=== PATIENT | female | born 1985 | race Two or more races ===

== ENCOUNTER 2025-07-22 14:30 | Inpatient (IN) | payer MEDICAID, OTHER ==
[~2025-07-22] VITALS: Ht 160 cm; Wt 78.8 kg
--- NOTE | 2025-07-22 15:31 | ED.PDOC ---
Musculoskeletal HPI Comments 39-year-old female presents with a chief complaint of left arm swelling s/p IV methamphetamine use. Patient states that she "shoots up meth all the time" and this time chose to use her left arm. Patient states that she "did not hit" and now has redness, swelling, and 10/10 pain to the area where she attempted to use methamphetamine. Patient also reports that the area durand and her hand and fingers are numb to the touch. PMHx: IV Drug User PSHx: , Cholecystectomy, Appendectomy, HPI: Poor Historian. REVIEW OF SYSTEMS: CONSTITUTIONAL: Denies acute: fever, diaphoresis, HEAD: Denies acute: headache, photophobia Eyes: Denies acute: Double vision, vision loss, eye pain, eye discharge. EARS: Denies acute: tinnitus, hearing loss, ear discharge, ear pain, THROAT: Denies acute: sore throat, swelling, difficulty swallowing , pain with swallowing, change in voice. NECK: Denies acute: neck pain, neck swelling, stiff neck. HEART: Denies acute : chest pain, palpitations, LUNGS: Denies acute: SOB, wheezing, cough, hemoptysis ABDOMEN: Denies acute: abdominal pain, Nausea, Vomiting, diarrhea, melena , hematemesis, hematochezia SKIN: Denies acute: rash, lesions, itchiness. EXTREMITIES: Denies acute: calf pain, numbness, tingling, weakness, Denies acute: Low back pain. Neuro: Denies acute: focal neurological deficit, motor or sensory focal neurological deficit, tremors, seizure like activity, confusion, dizziness, change in mental status, loss of bowel or bladder function, cauda equina like symptoms. : Denies acute: dysuria, hematuria, flank pain, increase in urinary frequency. PSYCH: Denies acute: hallucination, suicidal ideation, homicidal ideation. FEMALE: Denies acute: abnormal vaginal bleeding, foul odor, unusual discharge. PHYSICAL EXAM: General: ----moderate----acute distress, awake and alert. Head: normocephalic, atraumatic. Neck: supple, trachea is midline, no swelling. Throat: Normal phonation. Eyes:, no erythema, no purulent discharge, no proptosis, no icterus. Heart: regular rate, regular rhythm, no significant murmur appreciated. Lungs: no apparent respiratory distress, Able to speak in full sentences. No wheezing, no rhonchi, no crackles. No stridors Clear to auscultation bilaterally. Abdomen: non tender to palpation, non distended, soft, no guarding, no rebound, + bowel sounds. Neuro: Awake, Alert, oriented to name, self, situation, follows commands GCS=15. Speech is normal. Skin: no petechia, no purpura, no cyanosis, non-pale, not jaundice. Lower extremities: --no - Pitting edema no deformity, no focal swelling, no calf TTP. Makes eye contact. moves all four extremities. Face: no apparent facial droop. Ambulating in the ED independently. Evaluation of the area of complaint: Left upper extremity distal 1/3 of forearm erythema swelling and tenderness to palpation. Patient is neurovascularly intact in the affected extremity. Motor and sensory are present. Radial pulses palpable. This is the same area where patient injected drugs yesterday. ED COURSE: DISCLAIMER: This medical document was created using an electronic medical record system with voice recognition software and computerized dictation system. Although this document has been carefully reviewed, there might still be some phonetic and typographical errors. Occasional wrong-word or "sound-alike" substitutions may have occurred due to the inherent limitations of voice recognition software. These areas are purely typographical due to imperfections of the software programs and do not reflect any compromise in the patient's medical care. Please read the chart carefully and recognize, using context, where these substitutions have occurred. Chief Complaint: Extremity Swelling Time Seen by MD: 15:22 Reviewed Notes: Medications, Allergies Allergies: Coded Allergies: NO KNOWN ALLERGIES (Unverified , 07/22/25) Information Source: Patient Mode of Arrival: Ambulatory Location: Left Past Medical History PAST MEDICAL HISTORY: Denies Surgical History: Appendectomy, Cholecystectomy, GUT SNATCHER History: Denies all GUT SNATCHER Hx Family History Family History: Reviewed,noncontributory to illness Social History Smoker: Non-Smoker Alcohol: Denies ETOH Use Drugs: Methamphetamine Lives In: Home Was a procedure done? Was a procedure done?: No Differential Diagnosis EXT Differential Diagnosis: Cellulitis, CHF, Deep Vein Thrombosis, Compartment Syndrome, Fracture, Sprain, Dislocation, Gout, DJD, Myocardial Infarction, Contusion, Strain, Rheumatoid, Septic, Neurovascular injury, Arthritis, Bursitis, Other (Leg swellingDdx include but not limited to DVT, ischemic limb, pitting edema, volume overload, CHF, cellulitis, hematoma, compartment syndrome, dependent edema, venous stasis.) X-Ray, Labs, Meds, VS Vital Signs Date Time Temp Pulse Resp B/P (MAP) Pulse Ox O2 Delivery O2 Flow Rate FiO2 07/22/25 16:48 114 18 07/22/25 16:48 98.4 114 20 107/72 (84) 95 98.4 07/22/25 14:32 98.5 110 18 103/82 98 98.5 Lab Test 07/22/25 15:32 Range/Units White Blood Count 18.0 H 4.4-10.8 10^3/uL Red Blood Count 4.75 4.0-5.20 10^6/uL Hemoglobin 14.4 12.2-16.2 g/dL Hematocrit 41.9 36.0-46.0 % Mean Corpuscular Volume 88.3 80.0-100.0 fL Mean Corpuscular Hemoglobin 30.4 28.0-32.0 pg Mean Corpuscular Hemoglobin Concent 34.4 32.0-36.0 g/dL Red Cell Distribution Width 12.6 11.8-14.3 % Platelet Count 365 140-450 10^3/uL Mean Platelet Volume 8.2 6.9-10.8 fL Neutrophils (%) (Auto) 91.0 H 37.0-80.0 % Lymphocytes (%) (Auto) 3.8 L 10.0-50.0 % Monocytes (%) (Auto) 4.5 0.0-12.0 % Eosinophils (%) (Auto) 0.4 0.0-7.0 % Basophils (%) (Auto) 0.3 0.0-2.0 % Neutrophils # (Auto) 16.3 H 1.6-8.6 10 ^3/uL Lymphocytes # (Auto) 0.7 0.4-5.4 10 ^3/uL Monocytes # (Auto) 0.8 0-1.3 10 ^3/uL Eosinophils # (Auto) 0.1 0-0.8 10 ^3/uL Basophils # (Auto) 0.1 0-0.2 10 ^3/uL Nucleated Red Blood Cells 0.0 % Sodium Level 139 136-145 mmol/L Potassium Level 3.5 3.5-5.1 mmol/L Chloride Level 105 98-107 mmol/L Carbon Dioxide Level 22 20-31 mmol/L Anion Gap 12 5-15 Blood Urea Nitrogen 12 9-23 mg/dL Creatinine 0.78 0.550-1.02 mg/dL Glomerular Filtration Rate Calc 100 >90 mL/min BUN/Creatinine Ratio 15.4 10.0-20.0 Serum Glucose 107 H 74-106 mg/dL Hemoglobin A1c 5.2 <5.7 % A1C Lactic Acid Level 1.9 0.4-2.0 mmol/L Calcium Level 9.6 8.7-10.4 mg/dL Phosphorus Level 1.6 L 2.4-5.1 mg/dL Magnesium Level 1.9 1.6-2.6 mg/dL Total Bilirubin 0.9 0.2-1.0 mg/dL Aspartate Amino Transferase (AST) 25 13-40 U/L Alanine Aminotransferase (ALT) 20 7-40 U/L Alkaline Phosphatase 131 H 46-116 U/L C-Reactive Protein High Sensitivity 0.89 <1.0 mg/dL Total Protein 7.6 5.7-8.2 g/dL Albumin 4.5 3.2-4.8 g/dL Vitamin B12 Level Pending Vitamin D 25-Hydroxy Pending Thyroid Stimulating Hormone (TSH) 1.62 0.55-4.78 uIU/mL Beta HCG, Quantitative 0.4 L 1.5-4.2 mIU/mL Plasma/Serum Blood Alcohol < 3.0 <10 mg/dL Current Medications Medications (Trade) Dose Ordered Sig/Jesús Route Start Time Stop Time Status Last Admin Vancomycin HCl 250 ml @ 250 mls/hr ONCE ONCE IV 07/22/25 15:30 07/22/25 16:29 DC 07/22/25 20:25 Piperacillin Sod/ Tazobactam Sod 100 ml @ 100 mls/hr ONCE ONCE IV 07/22/25 15:30 07/22/25 16:29 DC 07/22/25 16:58 Sodium Chloride 500 ml @ 500 mls/hr Q1H ONCE IV 07/22/25 20:45 07/22/25 21:44 DC 07/22/25 21:16 Sodium Chloride 1,000 ml @ 75 mls/hr [id number] IV 07/22/25 20:45 07/22/25 21:16 PATIENT: FIORELLA SERNA: [id number]: [id number] : 1985 LOC: ER ROOM / BED: / AGE / SEX: 39 / F ADM STATUS: REG ER SERVICE 1615 ORDERING PHYSICIAN: ABEBA MILLAN DO PROCEDURE(s): UECIR - LT UPPER EXTREMITY W CONTRAS REASON: PAIN AND SWELLING S/P METH INJECTION ORDER NUMBER(s): [id number], ACCESSION NUMBER(s): [id number] CT LEFT UPPER EXTREMITY WITH CONTRAST HISTORY: PAIN AND SWELLING S/P METH INJECTION COMPARISON: None TECHNIQUE: Multiple axial CT images of the left upper extremity were obtained with intravenous contrast. Coronal and sagittal bone and soft tissue reformations were also obtained. One or more of the following radiation dose reduction techniques were used for this examination: automated exposure control, adjustment of the mA and/or kV according to patient size, use of iterative reconstruction technique. Findings and impression: Subcutaneous edema noted along the radial aspect of the distal forearm. No sizable, loculated fluid collections are appreciated at this time. Findings may reflect cellulitis. If there is persistent concern for abscess, focused ultrasound may be considered to further evaluate. Major vascular structures appear patent. No bony destructive changes or soft tissue gas identified at this time. ATED BY: NIKOLAI MURPHY MD DICTATED DATE/TIME: 07/22/251935 SIGNED BY: NIKOLAI MURPHY MD SIGNED DATE/TIME: 07/22/251935 Time of 1ST Reevaluation: 15:42 Reevaluation 1ST: Unchanged Patient Education/Counseling: Diagnosis, Treatment Family Education/Counseling: Diagnosis, Treatment Comments MDM: patient presented with the above HPI.---left arm pain and swelling---workup was initiated. patient was found with the above mentioned diagnosis. the following medications were ordered: please refer to order lists of meds and tests obtained by myself Dr. Millan. Patient ED course and VS have been stabilized. Patient has been reassessed in the ED and remained in a stable condition. Pertinent incidental findings were discussed with the patient and/or family. Patient/family voices understanding and is agreeable with plan. Patient has been observed in the ED adequate length of time to insure improvement/stability. Escalation of care considered: Consideration of escalation to observation or admission Antibiotics initiated. Patient was ADMITTED to the medicine team for further evaluation and treatment of their presentation. All the reports of any imaging studies that were ordered by myself were reviewed by myself. Departure 1 Departure Time of Disposition: 17:02 Impression: Primary Impression: Left arm cellulitis Additional Impression: IV drug abuse Disposition: ADMITTED INPATIENT Admit to: Tele Condition: Guarded Discharged With: Self Critical Care Note Critical Care Time?: No I personally scribed for ABEBA MILLAN DO ([email or web address]) on 07/22/25 at 15:31. Elec tronically submitted by Diaz Wiley ([email or web address]). I personally scribed for ABEBA MILLAN DO ([email or web address]) on 07/22/25 at 19:54. Elect ronically submitted by Diaz Wiley ([email or web address]). ABEBA MILLAN DO Jul 22, 2025 15:31
[2025-07-22 16:02] LABS: Hematocrit 41.9 % (36.0-46.0); Hemoglobin 14.4 g/dL (12.2-16.2); Mean Corpuscular Hemoglobin 30.4 pg (28.0-32.0); Mean Corpuscular Volume 88.3 fL (80.0-100.0); Nucleated Red Blood Cells % 0.0 %
[2025-07-22 16:14] LABS: Alanine Aminotransferase 20 U/L (7-40); Albumin 4.5 g/dL (3.2-4.8); Anion Gap 12 (5-15); BUN/Creatinine Ratio 15.4 (10.0-20.0); Bilirubin, Total 0.9 mg/dL (0.2-1.0); Blood Urea Nitrogen 12 mg/dL (9-23); Calcium 9.6 mg/dL (8.7-10.4); Carbon Dioxide 22 mmol/L (20-31); Chloride 105 mmol/L (98-107); Sodium 139 mmol/L (136-145); Total Protein 7.6 g/dL (5.7-8.2)
[2025-07-22 16:20] LABS: Alkaline Phosphatase 131 U/L (46-116); Glucose 107 mg/dL (74-106); Potassium 3.5 mmol/L (3.5-5.1)
[2025-07-22] MEDS: PIPERACILLIN-TAZOB 3.375GM 100 ML IV ONE (16:58)
--- NOTE | 2025-07-22 19:38 | DVH ---
CT LEFT UPPER EXTREMITY WITH CONTRAST HISTORY: PAIN AND SWELLING S/P METH INJECTION COMPARISON: None TECHNIQUE: Multiple axial CT images of the left upper extremity were obtained with intravenous contra st. Coronal and sagittal bone and soft tissue reformations were also obtained. One or more of the [place] radiation dose reduction techniques were used for this examination: automated exposure contro l, adjustment of the mA and/or kV according to patient size, use of iterative reconstruction techniqu e. Findings and impression: Subcutaneous edema noted along the radial aspect of the distal forearm. No sizable, loculated fluid c ollections are appreciated at this time. Findings may reflect cellulitis. If there is persistent concern for abscess, focused ultrasound may be considered to further evaluate. Major vascular structures appear patent. No bony destructive changes or soft tissue gas identified at this time.
[2025-07-22] MEDS: VANCOMYCIN 1GM/250ML KIT 250 ML IV ONE (20:25)
[2025-07-22] MEDS: IOHEXOL 300 MG/ML 100ML BOTTLE IJ ONE (20:26)
[2025-07-22] MEDS ORDERED: VANCOMYCIN PER PHARMACY 0 MG IV SCH (20:45)
[2025-07-22] MEDS ORDERED: MORPHINE SULFATE INJ 2 MG/ml SYRG IV PRN (21:00)
[2025-07-22] MEDS ORDERED: NITROGLYCERIN 0.4 MG SL TAB SL PRN (21:00)
[2025-07-22] MEDS ORDERED: DOCUSATE SOD 100 MG CAP PO PRN (21:00)
[2025-07-22 21:10] LABS: Magnesium 1.9 mg/dL (1.6-2.6)
[2025-07-22] MEDS: MORPHINE SULFATE INJ 2 MG/ml SYRG IV PRN (21:15)
[2025-07-22] MEDS: SODIUM CHLORIDE 0.9% 1,000 ML IV SCH (21:16)
[2025-07-22] MEDS: SODIUM CHLORIDE 0.9% 500 ML IV ONE (21:16)
--- NOTE | 2025-07-22 23:00 | DVHHPRES ---
History of Present Illness Resident Creating Document: MICAH DE SANTIAGO History of Present Illness Gina Heath this is a 39-year-old female patient who presents to the ED with chief complaint of left forearm and left hand numbness after IV injection of methamphetamine associated with fever. Denies any other associated symptoms. 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 Surgical history: , 2015 appendicectomy, 2023 cholecystectomy Family history: Noncontributory Social history: Lives in [place] with a friend (next of kin we will be the grandmother) has a daughter who is 14 years old. Current tobacco abuse (20 pack-year history of smoking), occasional marijuana abuse. Abuse with methamphetamine. Denies alcohol and other drug abuse. Allergies: Denies Home medication: Denies Patient seen and examined at bedside. Currently in mild distress due to left forearm pain. Completed CT of left upper extremity which shows edema, loculated fluid compatible with cellulitis. Indicated IV morphine and IV antibiotics.. Past Medical History Per HPI Past Surgical History Per HPI Family History Per HPI Past Social History Per HPI Review of Systems Review of Systems Per HPI Allergies: Coded Allergies: NO KNOWN ALLERGIES (Unverified , 07/22/25) Medications Current Medications Medications Dose Ordered Sig/Jesús Route Start Time Stop Time Status Last Admin Dose Admin Piperacillin Sod/ Tazobactam Sod 100 ml @ 25 mls/hr Q6HR IV 07/23/25 00:00 Pantoprazole Sodium 40 mg DAILY@0600 PO 07/23/25 06:00 Vancomycin HCl 0 ml @ 0 mls/hr UD IV 07/22/25 20:45 UNV Sodium Chloride 1,000 ml @ 75 mls/hr [id number] IV 07/22/25 20:45 07/22/25 21:16 75 MLS/HR Docusate Sodium 100 mg BIDPRN PRN PO 07/22/25 21:00 Morphine Sulfate 2 mg Q4HPRN PRN IV 07/22/25 21:00 07/22/25 21:15 2 MG Enoxaparin Sodium 40 mg DAILY SC 07/23/25 10:00 Nitroglycerin 0.4 mg Q5MINP PRN SL 07/22/25 21:00 Morphine Sulfate 2 mg Q30M PRN IV 07/22/25 21:00 Exam Vital Signs Vital Signs Date Time Temp Pulse Resp B/P (MAP) Pulse Ox O2 Delivery O2 Flow Rate FiO2 07/22/25 21:15 128 20 124/80 07/22/25 16:48 98.4 95 98.4 Exam Patient lying in bed, in no acute distress General: Lucid, afebrile, mucosae are moist Cardiovascular: Normal S1 and S2. No murmurs, gallops or rubs Respiratory: Normal ventilation mechanics. Clear lung sounds on auscultation Abdomen: Soft, nontender, no organomegaly, normal bowel sounds MSK/skin: Mobilizes 4 limbs. Skin is dry and warm. Erythema and tenderness on dorsum of left distal forearm, presents weak beam carrier hauler pusher on left arm due to pain. Patient also presents erythema on left leg where patient had tattoo placed. Neurological: Oriented in 3 spheres. No motor no sensitive deficits. Pupils are isocoric and reactive Labs/Xrays Labs Test 07/22/25 15:32 Range/Units White Blood Count 18.0 H 4.4-10.8 10^3/uL Red Blood Count 4.75 4.0-5.20 10^6/uL Hemoglobin 14.4 12.2-16.2 g/dL Hematocrit 41.9 36.0-46.0 % Mean Corpuscular Volume 88.3 80.0-100.0 fL Mean Corpuscular Hemoglobin 30.4 28.0-32.0 pg Mean Corpuscular Hemoglobin Concent 34.4 32.0-36.0 g/dL Red Cell Distribution Width 12.6 11.8-14.3 % Platelet Count 365 140-450 10^3/uL Mean Platelet Volume 8.2 6.9-10.8 fL Neutrophils (%) (Auto) 91.0 H 37.0-80.0 % Lymphocytes (%) (Auto) 3.8 L 10.0-50.0 % Monocytes (%) (Auto) 4.5 0.0-12.0 % Eosinophils (%) (Auto) 0.4 0.0-7.0 % Basophils (%) (Auto) 0.3 0.0-2.0 % Neutrophils # (Auto) 16.3 H 1.6-8.6 10 ^3/uL Lymphocytes # (Auto) 0.7 0.4-5.4 10 ^3/uL Monocytes # (Auto) 0.8 0-1.3 10 ^3/uL Eosinophils # (Auto) 0.1 0-0.8 10 ^3/uL Basophils # (Auto) 0.1 0-0.2 10 ^3/uL Nucleated Red Blood Cells 0.0 % Sodium Level 139 136-145 mmol/L Potassium Level 3.5 3.5-5.1 mmol/L Chloride Level 105 98-107 mmol/L Carbon Dioxide Level 22 20-31 mmol/L Anion Gap 12 5-15 Blood Urea Nitrogen 12 9-23 mg/dL Creatinine 0.78 0.550-1.02 mg/dL Glomerular Filtration Rate Calc 100 >90 mL/min BUN/Creatinine Ratio 15.4 10.0-20.0 Serum Glucose 107 H 74-106 mg/dL Hemoglobin A1c 5.2 <5.7 % A1C Lactic Acid Level 1.9 0.4-2.0 mmol/L Calcium Level 9.6 8.7-10.4 mg/dL Phosphorus Level 1.6 L 2.4-5.1 mg/dL Magnesium Level 1.9 1.6-2.6 mg/dL Total Bilirubin 0.9 0.2-1.0 mg/dL Aspartate Amino Transferase (AST) 25 13-40 U/L Alanine Aminotransferase (ALT) 20 7-40 U/L Alkaline Phosphatase 131 H 46-116 U/L C-Reactive Protein High Sensitivity 0.89 <1.0 mg/dL Total Protein 7.6 5.7-8.2 g/dL Albumin 4.5 3.2-4.8 g/dL Thyroid Stimulating Hormone (TSH) 1.62 0.55-4.78 uIU/mL Beta HCG, Quantitative 0.4 L 1.5-4.2 mIU/mL Plasma/Serum Blood Alcohol < 3.0 <10 mg/dL SEPSIS Sepsis Screen Date sepsis recognized/suspect: Jul 22, 2025 Time Sepsis recognized/suspect: 1434 Recent Procedure: No On Antibiotic Therapy: No Respiratory Rate >20: No Heart Rate >90: Yes Temp<36 C (96.8 F) or >38.3 C: No SBP <90 or MAP <65 mmHG: No New Acute Mental Status Change: No Is the patient on CPAP, BIPAP,: No Physician Orders Fitness Trainer (07/22/25 ) Drug Screen (07/22/25 15:08) Blood Culture (07/22/25 15:27) Lt Upper Extremity W Contras (07/22/25 16:15) Piperacillin-Tazob 3.375gm (Zosyn 3.375g (07/23/25 00:00) Pantoprazole Tablet (Protonix Tablet) (07/23/25 06:00) Vancomycin Per Pharmacy (07/22/25 20:45) Sodium Chloride 0.9% (07/22/25 20:45) PTPTT (07/23/25 04:00) Complete Blood Count (07/23/25 04:00) Basic Metabolic Panel (07/23/25 04:00) Urinalysis (07/22/25 20:40) Vitamin D, 25-Hydroxy (07/22/25 20:40) Vitamin B12 (07/22/25 20:40) Mrsa Screen (07/22/25 20:40) * Wound Consult (07/22/25 ) Wound Culture W/ Gs (07/22/25 20:40) Admit (07/22/25 20:46) Code Status (07/22/25 20:46) Vital Signs .PER UNIT PROTOCOL (07/22/25 20:46) Review Orders With Adm.Md (07/22/25 20:46) Regular Diet (07/23/25 Breakfast) Docusate Sodium Capsule (Colace Capsule) (07/22/25 21:00) Notify Md Of Changes From Base (07/22/25 20:46) Advance Directive (07/22/25 20:46) Chest Two Views Routine (07/23/25 04:00) Patient Condition (07/22/25 20:46) Allergies (07/22/25 20:46) Morphine Sulfate Injection (07/22/25 21:00) Enoxaparin Sodium (Lovenox) (07/23/25 10:00) Nitroglycerin Sublingual (Ntrostat Subli (07/22/25 21:00) Morphine Sulfate Injection (07/22/25 21:00) Oxygen By Nasal Cannula (07/22/25 20:46) Stat Ekg For Chest Pain (07/22/25 20:46) Notify Md Of Changes From Base (07/22/25 20:46) Installation Manager For 24 Hours (07/22/25 20:46) Emergency Dysrhythmia Protocol (07/22/25 20:46) Rhythm Strips Once Every Shift (07/22/25 20:46) Vital Signs Date Time Temp Pulse Resp B/P (MAP) Pulse Ox O2 Delivery O2 Flow Rate FiO2 07/22/25 21:15 128 20 124/80 07/22/25 16:48 114 18 07/22/25 16:48 98.4 114 20 107/72 (84) 95 98.4 Laboratory Tests Test 07/22/25 15:32 Lactic Acid Level 1.9 mmol/L (0.4-2.0) White Blood Count 18.0 10^3/uL (4.4-10.8) H Medications Medications Dose Ordered Sig/Jesús Route Start Time Stop Time Status Last Admin Dose Admin Morphine Sulfate 2 mg Q4HPRN PRN IV 07/22/25 21:00 07/22/25 21:15 2 MG Piperacillin Sod/ Tazobactam Sod 100 ml @ 100 mls/hr ONCE ONCE IV 07/22/25 15:30 07/22/25 16:29 DC 07/22/25 16:58 100 MLS/HR Sodium Chloride 500 ml @ 500 mls/hr Q1H ONCE IV 07/22/25 20:45 07/22/25 21:44 DC 07/22/25 21:16 500 MLS/HR Sodium Chloride 1,000 ml @ 75 mls/hr [id number] IV 07/22/25 20:45 07/22/25 21:16 75 MLS/HR Vancomycin HCl 100 ml @ 200 mls/hr ONCE ONCE IV 07/22/25 21:00 07/22/25 21:29 DC 07/22/25 21:43 200 MLS/HR Vancomycin HCl 250 ml @ 250 mls/hr ONCE ONCE IV 07/22/25 15:30 07/22/25 16:29 DC 07/22/25 20:25 250 MLS/HR Assessment/Plan Assessment/Plan # Sepsis secondary to cellulitis # Cellulitis secondary to IV drug abuse # Rule out DVT of left upper extremity Patient presented erythema in exquisite pain after IV drug abuse in left upper extremity (IV methamphetamine). Patient presented tachycardic and leukocytosis on admission. Completed CT of left upper extremity which showed edema, loculated fluid compatible with cellulitis. No clear evidence of abscess. Currently under empiric IV antibiotic (vancomycin and Zosyn) Ordered culture (blood, wound and urine), pending result Indicated IV fluids. Ordered ultrasound of left upper extremity to rule out DVT Optimize pain management (IV morphine) # Polysubstance abuse # Rule out infections associated with IV drug abuse Counseled for over 15 minutes on cessation of substance abuse (tobacco, marijuana and methamphetamine) Ordered nicotine patches Ordered UDS Ordered hepatitis panel and HIV # History of left upper extremity DVT secondary to IV drug abuse Ordered upper extremity ultrasound Goals of care discussed with patient for over 18 minutes: Full code status Discussed case with Dr. Roberson, patient and nurses: Patient presents sepsis secondary to cellulitis due to IV drug abuse, currently under empiric IV a ntibiotics and IV fluids. Ordered ultrasound of upper extremity to rule out DVT (patient had history of DVT previously due to drug abuse). CT of left upper extremity did not evidence presence of abscess at this time, but if patient persists symptomatic may require MRI to rule out presence of abscess. We will evaluate requirement of surgical consult. Patient has poor prognosis. Plan discussed with: Patient, Other (Nurses) My Orders Orders - MICAH DE SANTIAGO RESIDENT Procedure Category Date Status Time Piperacillin-Tazob PHA 07/23/25 In Process 3.375gm (Zosyn 3.375g 00:00 Pantoprazole Tablet PHA 07/23/25 In Process (Protonix Tablet) 06:00 Vancomycin Per PHA 07/22/25 Pending Pharmacy 20:45 Sodium Chloride 0.9% PHA 07/22/25 In Process 20:45 PTPTT LAB 07/23/25 Verified 04:00 Complete Blood Count LAB 07/23/25 Verified 04:00 Basic Metabolic Panel LAB 07/23/25 Verified 04:00 Urinalysis LAB 07/22/25 Logged 20:40 Vitamin D, 25-Hydroxy LAB 07/22/25 In Process 20:40 Vitamin B12 LAB 07/22/25 In Process 20:40 Mrsa Screen LUCIAN 07/22/25 Logged 20:40 * Wound Consult CONS 07/22/25 Transmitted Wound Culture W/ Gs LUCIAN 07/22/25 Logged 20:40 Admit ADMIT 07/22/25 Transmitted 20:46 Code Status CODE 07/22/25 Transmitted 20:46 Vital Signs RUBA 07/22/25 In Process 20:46 Review Orders With RUBA 07/22/25 In Process Adm. 20:46 Regular Diet DIET 07/23/25 Transmitted Breakfast Docusate Sodium PHA 07/22/25 In Process Capsule (Colace 21:00 Notify Md Of Changes RUBA 07/22/25 In Process From Base 20:46 Advance Directive RUBA 07/22/25 In Process 20:46 Chest Two Views XY 07/23/25 Logged Routine 04:00 Patient Condition ORDERS 07/22/25 Transmitted 20:46 Allergies RUBA 07/22/25 In Process 20:46 Morphine Sulfate PHA 07/22/25 In Process Injection 21:00 Enoxaparin Sodium PHA 07/23/25 In Process (Lovenox) 10:00 Nitroglycerin PHA 07/22/25 In Process Sublingual (Ntrostat 21:00 Morphine Sulfate PHA 07/22/25 In Process Injection 21:00 Oxygen By Nasal RT 07/22/25 Transmitted Cannula 20:46 Stat Ekg For Chest RUBA 07/22/25 In Process Pain 20:46 Notify Md Of Changes RUBA 07/22/25 In Process From Base 20:46 Installation Manager For [facility] 07/22/25 In Process 24 Hours 20:46 Emergency Dysrhythmia [facility] 07/22/25 In Process Protocol 20:46 Rhythm Strips Once [facility] 07/22/25 In Process Every Shift 20:46 Date of Service: Jul 22, 2025 Billing Provider: KEVIN ROBERSON MD Common Visit Codes: 76423-MADSYQN INP/OBS CARE (HIGH) Secondary Visit Codes: 68975-MJKGNOPS CARE PLAN 30 MINUTES MICAH DE SANTIAGO Jul 22, 2025 23:00
[2025-07-23] MEDS: PIPERACILLIN-TAZOB 3.375GM 100 ML IV SCH
--- NOTE | 2025-07-23 00:37 | DVH ---
EXAMINATION: XY CHEST TWO VIEWS ROUTINE CLINICAL HISTORY: Sespsis COMPARISON: None FINDINGS: Mild central interstitial prominence. No lobar consolidation identified. No sizable pleural effusion or pneumothorax. The cardiomediastinal silhouette appears within normal limits. IMPRESSION: Mild central interstitial prominence is relatively nonspecific but can be seen with edema, reactive a irway changes as well as atypical / viral infection. Please correlate clinically.
[2025-07-23] MEDS: NICOTINE 14 MG/24HR TOPICAL PATCH TD ONE (01:15)
[2025-07-23 02:33] VITALS: PULSE 82; RESP 20; O2SAT 97
[2025-07-23] MEDS: PANTOPRAZOLE 40 MG TAB PO SCH (05:55)
[2025-07-23 08:26] LABS: Hematocrit 41.8 % (36.0-46.0); Hemoglobin 14.5 g/dL (12.2-16.2); Mean Corpuscular Hemoglobin 30.7 pg (28.0-32.0); Mean Corpuscular Volume 88.9 fL (80.0-100.0); Nucleated Red Blood Cells % 0.0 %
[2025-07-23 08:42] LABS: Anion Gap 9 (5-15); Carbon Dioxide 25 mmol/L (20-31); Chloride 104 mmol/L (98-107); INR 1.03 (0.9-1.15); Partial Thromboplastin Time 27.4 SEC (24.5-34.5); Potassium 4.0 mmol/L (3.5-5.1); Prothrombin Time 10.9 sec (9.3-11.8); Sodium 138 mmol/L (136-145)
[2025-07-23 08:43] LABS: Calcium 9.2 mg/dL (8.7-10.4)
[2025-07-23 08:48] LABS: BUN/Creatinine Ratio 13.4 (10.0-20.0); Blood Urea Nitrogen 9 mg/dL (9-23); Glucose 101 mg/dL (74-106)
--- NOTE | 2025-07-23 10:40 | DVH ---
CLINICAL HISTORY: LUE edema TECHNIQUE: Color and duplex doppler imagine of the left upper extremity veins and left subclavian vei n was performed. Vessel compression if possible was also performed. COMPARISON: CT LT UPPER EXTREMITY W CONTRAS on DOS: 07/22/25 FINDINGS: The left internal jugular, axillary, basilic, cephalic, radial, ulnar, and paired brachial veins are patent and demonstrate normal compressibility and flow. The left subclavian is patent. IMPRESSION: NO SONOGRAPHIC EVIDENCE FOR DEEP VENOUS THROMBOSIS IN THE LEFT UPPER EXTREMITY VEINS.
[2025-07-23] MEDS: ENOXAPARIN SOD 40 MG/0.4 ML SYRINGE SC SCH (10:52)
[2025-07-23] MEDS: NICOTINE 14 MG/24HR TOPICAL PATCH TD SCH (10:53)
--- NOTE | 2025-07-23 12:48 | DVHPN2 ---
Reviewed: Care Plan, H&P, Labs, Medications, Previous Orders, Radiology Changes from previous H/P or p: No Changes Objective Vitals Vital Signs Date Time Temp Pulse Resp B/P (MAP) Pulse Ox O2 Delivery O2 Flow Rate FiO2 07/23/25 11:00 98.0 89 18 1161 (45) 98 98.0 07/23/25 08:00 Room Air* 0 21 Intake/Output Intake and Output 07/23/25 07:00 Intake Total 25 ml Balance 25 ml Intake IV Total 25 ml Medications Current Medications Medications Dose Ordered Sig/Jesús Route Start Time Stop Time Status Last Admin Dose Admin Piperacillin Sod/ Tazobactam Sod 100 ml @ 25 mls/hr Q6HR IV 07/23/25 00:00 07/23/25 11:49 25 MLS/HR Pantoprazole Sodium 40 mg DAILY@0600 PO 07/23/25 06:00 07/23/25 05:55 40 MG Vancomycin HCl 0 ml @ 0 mls/hr UD IV 07/22/25 20:45 Sodium Chloride 1,000 ml @ 75 mls/hr [id number] IV 07/22/25 20:45 07/22/25 21:16 75 MLS/HR Docusate Sodium 100 mg BIDPRN PRN PO 07/22/25 21:00 Morphine Sulfate 2 mg Q4HPRN PRN IV 07/22/25 21:00 07/23/25 09:40 2 MG Enoxaparin Sodium 40 mg DAILY SC 07/23/25 10:00 07/23/25 10:52 40 MG Nicotine 1 patch DAILY TD 07/23/25 10:00 07/23/25 10:53 1 PATCH Laboratory Results Laboratory Tests 07/23/25 07:59 Chemistry Test 07/22/25 15:32 07/23/25 07:59 Albumin 4.5 g/dL (3.2-4.8) Calcium Level 9.6 mg/dL (8.7-10.4) 9.2 mg/dL (8.7-10.4) Magnesium Level 1.9 mg/dL (1.6-2.6) Phosphorus Level 1.6 mg/dL (2.4-5.1) L Total Protein 7.6 g/dL (5.7-8.2) Coagulation Test 8/31/25 07:59 Prothrombin Time 10.9 sec (9.3-11.8) Prothrombin Time INR 1.03 (0.9-1.15) Activated Partial Thromboplast Time 27.4 SEC (24.5-34.5) LFT Test 07/22/25 15:32 Alanine Aminotransferase (ALT) 20 U/L (7-40) Alkaline Phosphatase 131 U/L (46-116) H Aspartate Amino Transferase (AST) 25 U/L (13-40) Total Bilirubin 0.9 mg/dL (0.2-1.0) HgA1c, TSH Test 07/22/25 15:32 Hemoglobin A1c 5.2 % A1C (<5.7) Thyroid Stimulating Hormone (TSH) 1.62 uIU/mL (0.55-4.78) Labs and/or images reviewed: Labs reviewed by me, Image(s) reviewed by me Assessment/Plan Assessment/Plan Sepsis secondary to cellulitis left upper extremity Cellulitis left upper extremity secondary to IV drug abuse: Zosyn vancomycin IV methamphetamine abuse: Counseling Polysubstance abuse Time smoker counseling nicotine patch Hepatitis panel and HIV pending History of left lower extremity DVT secondary to IV drug abuse Time spent 55 minutes Plan discussed with: Patient Date of Service: Jul 23, 2025 Billing Provider: OKSANA OROZCO MD Common Visit Codes: [id number] INP/OBS CARE(HIGH) OKSANA OROZCO MD Jul 23, 2025 12:48
[2025-07-23 23:05] VITALS: BP 108/73; PULSE 79; RESP 17; TEMP 97.9; O2SAT 97
[2025-07-23 23:15] VITALS: PULSE 79; RESP 17; O2SAT 97
[2025-07-24] VITALS (8 sets, daily range): BP systolic 103–143; BP diastolic 66–85; PULSE 74–96; RESP 16–20; TEMP 97.8–98.4; O2SAT 97–99
[2025-07-24 07:05] LABS: Hematocrit 36.5 % (36.0-46.0); Hemoglobin 12.6 g/dL (12.2-16.2); Mean Corpuscular Hemoglobin 30.8 pg (28.0-32.0); Mean Corpuscular Volume 88.9 fL (80.0-100.0); Nucleated Red Blood Cells % 0.0 %
[2025-07-24 07:44] LABS: Urine Protein, UAD Negative (Negative)
[2025-07-24 07:56] LABS: Opiate Scree,Urine Neg (NEGATIVE)
[2025-07-24 08:04] LABS: Amphetamine Screen, Urine Pos (NEGATIVE); Barbiturate Scree,Urine Neg (NEGATIVE); Benzodiazephine Screen, Urine Neg (NEGATIVE); Cannabinoid Screen, Urine Neg (NEGATIVE); Cocaine Screen, Urine Neg (NEGATIVE); Phencyclidine Screen, Urine Neg (NEGATIVE)
--- NOTE | 2025-07-24 10:43 | DVHPN2 ---
Reviewed: Care Plan, H&P, Labs, Medications, Previous Orders, Radiology Changes from previous H/P or p: No Changes Objective Vitals Vital Signs Date Time Temp Pulse Resp B/P (MAP) Pulse Ox O2 Delivery O2 Flow Rate FiO2 07/24/25 09:00 98.1 78 16 111/67 (82) 98 98.1 07/23/25 23:15 Room Air* 0 21 Intake/Output Intake and Output 07/24/25 07:00 Intake Total 450 ml Balance 450 ml Intake Oral 0 ml IV Total 450 ml Medications Current Medications Medications Dose Ordered Sig/Jesús Route Start Time Stop Time Status Last Admin Dose Admin Piperacillin Sod/ Tazobactam Sod 100 ml @ 25 mls/hr Q6HR IV 07/23/25 00:00 07/24/25 06:29 25 MLS/HR Pantoprazole Sodium 40 mg DAILY@0600 PO 07/23/25 06:00 07/24/25 06:28 40 MG Vancomycin HCl 0 ml @ 0 mls/hr UD IV 07/22/25 20:45 Sodium Chloride 1,000 ml @ 75 mls/hr [id number] IV 07/22/25 20:45 07/24/25 00:24 75 MLS/HR Docusate Sodium 100 mg BIDPRN PRN PO 07/22/25 21:00 Morphine Sulfate 2 mg Q4HPRN PRN IV 07/22/25 21:00 07/24/25 06:29 2 MG Enoxaparin Sodium 40 mg DAILY SC 07/23/25 10:00 07/24/25 09:44 40 MG Nicotine 1 patch DAILY TD 07/23/25 10:00 07/24/25 09:49 1 PATCH Laboratory Results Laboratory Tests 07/23/25 07:59 07/24/25 06:01 Urinalysis Test 07/24/25 06:30 Urine Color Colorless (Yellow) Urine Clarity Clear (Clear) Urine pH 7.0 (5.0-9.0) Urine Specific [place] 1.007 (1.001-1.035) Urine Protein Negative (Negative) Urine Ketones Negative (Negative) Urine Blood Negative /uL (Negative) Urine Nitrite Negative (Negative) Urine Bilirubin Negative (Negative) Urine Urobilinogen Normal mg/dL (Negative) Urine Leukocyte Esterase Negative /uL (Negative) Urine RBC 1 /hpf (0 - 4) Urine Microscopic WBC 2 /HPF (0-5) Urine Squamous Epithelial Cells Few /hpf (<5) Urine Bacteria None seen /hpf (None Seen) Urine Glucose Normal mg/dL (Normal) Microbiology Microbiology Date/Time Source Procedure Growth Status 07/23/25 08:40 Nose MRSA Screen - Final Complete 07/22/25 16:00 Blood Blood Culture - Preliminary NO GROWTH AFTER 24 HOURS OF INCUBATION. Resulted Labs and/or images reviewed: Labs reviewed by me, Image(s) reviewed by me Assessment/Plan Assessment/Plan Sepsis secondary to cellulitis left upper extremity Cellulitis left upper extremity secondary to IV drug abuse: Zosyn vancomycin blood cultures negative IV methamphetamine abuse: Counseling Polysubstance abuse Time smoker counseling nicotine patch Hepatitis panel and HIV pending History of left lower extremity DVT secondary to IV drug abuse Time spent 55 minutes RN Melody at bed side Plan discussed with: Patient Date of Service: Jul 24, 2025 Billing Provider: OKSANA OROZOC MD Common Visit Codes: [id number] INP/OBS CARE(HIGH) OKSANA OROZCO MD Jul 24, 2025 10:43
[2025-07-24] MEDS: VANCOMYCIN 1GM/250ML KIT 250 ML IV ONE (11:16)
[2025-07-24 14:16] LABS: Hepatitis A Total Antibody Negative (Negative); Hepatitis B Surface Antigen Negative (Negative); Hepatitis C Antibody Negative (Negative)
[2025-07-24] MEDS: VANCOMYCIN 1GM/250ML KIT 250 ML IV SCH (22:24)
[2025-07-25] VITALS (8 sets, daily range): BP systolic 111–117; BP diastolic 62–71; PULSE 75–103; RESP 16–23; TEMP 98–98.5; O2SAT 95–99
--- NOTE | 2025-07-25 11:58 | DVHPN2 ---
Reviewed: Care Plan, H&P, Labs, Medications, Previous Orders, Radiology Changes from previous H/P or p: No Changes Objective Vitals Vital Signs Date Time Temp Pulse Resp B/P (MAP) Pulse Ox O2 Delivery O2 Flow Rate FiO2 07/25/25 10:28 75 16 113/68 07/25/25 09:00 98.3 98 98.3 07/25/25 08:00 Room Air* 0 21 Intake/Output Intake and Output 07/25/25 07:00 Intake Total 2250 ml Balance 2250 ml Intake Oral 1800 ml IV Total 450 ml # Voids 9 Medications Current Medications Medications Dose Ordered Sig/Jesús Route Start Time Stop Time Status Last Admin Dose Admin Piperacillin Sod/ Tazobactam Sod 100 ml @ 25 mls/hr Q6HR IV 07/23/25 00:00 07/25/25 07:58 25 MLS/HR Pantoprazole Sodium 40 mg DAILY@0600 PO 07/23/25 06:00 07/25/25 06:15 40 MG Vancomycin HCl 0 ml @ 0 mls/hr UD IV 07/22/25 20:45 Sodium Chloride 1,000 ml @ 75 mls/hr [id number] IV 07/22/25 20:45 07/25/25 09:45 75 MLS/HR Docusate Sodium 100 mg BIDPRN PRN PO 07/22/25 21:00 Morphine Sulfate 2 mg Q4HPRN PRN IV 07/22/25 21:00 07/25/25 10:28 2 MG Enoxaparin Sodium 40 mg DAILY SC 07/23/25 10:00 07/25/25 10:27 40 MG Nicotine 1 patch DAILY TD 07/23/25 10:00 07/24/25 09:49 1 PATCH Vancomycin HCl 250 ml @ 250 mls/hr Q10H IV 07/24/25 21:00 07/25/25 06:14 250 MLS/HR Laboratory Results Laboratory Tests 07/23/25 07:59 07/24/25 06:01 07/25/25 05:09 Urinalysis Test 07/24/25 06:30 Urine Color Colorless (Yellow) Urine Clarity Clear (Clear) Urine pH 7.0 (5.0-9.0) Urine Specific [place] 1.007 (1.001-1.035) Urine Protein Negative (Negative) Urine Ketones Negative (Negative) Urine Blood Negative /uL (Negative) Urine Nitrite Negative (Negative) Urine Bilirubin Negative (Negative) Urine Urobilinogen Normal mg/dL (Negative) Urine Leukocyte Esterase Negative /uL (Negative) Urine RBC 1 /hpf (0 - 4) Urine Microscopic WBC 2 /HPF (0-5) Urine Squamous Epithelial Cells Few /hpf (<5) Urine Bacteria None seen /hpf (None Seen) Urine Glucose Normal mg/dL (Normal) Microbiology Microbiology Date/Time Source Procedure Growth Status 07/23/25 08:40 Nose MRSA Screen - Final Complete 07/22/25 16:00 Blood Blood Culture - Preliminary NO GROWTH AFTER 48 HOURS OF INCUBATION. Resulted Labs and/or images reviewed: Labs reviewed by me, Image(s) reviewed by me Assessment/Plan Assessment/Plan Sepsis secondary to cellulitis left upper extremity Cellulitis left upper extremity secondary to IV drug abuse: Zosyn vancomycin blood cultures negative IV methamphetamine abuse: Counseling Polysubstance abuse Time smoker counseling nicotine patch Hepatitis panel and HIV pending History of left lower extremity DVT secondary to IV drug abuse Time spent 55 minutes JF Schumacher at bed side Plan discussed with: Patient Date of Service: Jul 25, 2025 Billing Provider: OKSANA OROZCO MD Common Visit Codes: [id number] INP/OBS CARE(HIGH) OKSANA OROZCO MD Jul 25, 2025 11:58
[2025-07-25] MEDS ORDERED: VANCOMYCIN 1.25GM/250ML 250 ML IV SCH (18:00)
[2025-07-25] MEDS: VANCOMYCIN 1.25GM/250ML 250 ML IV SCH (18:08)
[2025-07-26] VITALS (8 sets, daily range): BP systolic 105–126; BP diastolic 60–93; PULSE 68–100; RESP 17–20; TEMP 97–98.8; O2SAT 94–99
--- NOTE | 2025-07-26 11:41 | DVHPN2 ---
Reviewed: Care Plan, H&P, Labs, Medications, Previous Orders, Radiology Changes from previous H/P or p: No Changes Objective Vitals Vital Signs Date Time Temp Pulse Resp B/P (MAP) Pulse Ox O2 Delivery O2 Flow Rate FiO2 07/26/25 10:18 80 18 121/91 07/26/25 09:00 98.2 97 98.2 07/26/25 08:00 Room Air* 0 21 Intake/Output Intake and Output 07/26/25 07:00 Intake Total 3870 ml Balance 3870 ml Intake Oral 2500 ml IV Total 1370 ml # Voids 7 # Bowel Movements 2 Medications Current Medications Medications Dose Ordered Sig/Jesús Route Start Time Stop Time Status Last Admin Dose Admin Piperacillin Sod/ Tazobactam Sod 100 ml @ 25 mls/hr Q6HR IV 07/23/25 00:00 07/26/25 05:56 25 MLS/HR Pantoprazole Sodium 40 mg DAILY@0600 PO 07/23/25 06:00 07/26/25 05:57 40 MG Vancomycin HCl 0 ml @ 0 mls/hr UD IV 07/22/25 20:45 Sodium Chloride 1,000 ml @ 75 mls/hr [id number] IV 07/22/25 20:45 07/25/25 17:53 75 MLS/HR Docusate Sodium 100 mg BIDPRN PRN PO 07/22/25 21:00 Morphine Sulfate 2 mg Q4HPRN PRN IV 07/22/25 21:00 07/26/25 10:18 2 MG Enoxaparin Sodium 40 mg DAILY SC 07/23/25 10:00 07/26/25 10:18 40 MG Nicotine 1 patch DAILY TD 07/23/25 10:00 07/24/25 09:49 1 PATCH Vancomycin HCl 250 ml @ 200 mls/hr Q10H IV 07/25/25 18:00 07/26/25 03:49 200 MLS/HR Laboratory Results Laboratory Tests 07/23/25 07:59 07/24/25 06:01 07/26/25 06:11 Urinalysis Test 07/24/25 06:30 Urine Color Colorless (Yellow) Urine Clarity Clear (Clear) Urine pH 7.0 (5.0-9.0) Urine Specific [place] 1.007 (1.001-1.035) Urine Protein Negative (Negative) Urine Ketones Negative (Negative) Urine Blood Negative /uL (Negative) Urine Nitrite Negative (Negative) Urine Bilirubin Negative (Negative) Urine Urobilinogen Normal mg/dL (Negative) Urine Leukocyte Esterase Negative /uL (Negative) Urine RBC 1 /hpf (0 - 4) Urine Microscopic WBC 2 /HPF (0-5) Urine Squamous Epithelial Cells Few /hpf (<5) Urine Bacteria None seen /hpf (None Seen) Urine Glucose Normal mg/dL (Normal) Microbiology Microbiology Date/Time Source Procedure Growth Status 07/23/25 08:40 Nose MRSA Screen - Final Complete 07/22/25 16:00 Blood Blood Culture - Preliminary NO GROWTH AFTER 72 HOURS OF INCUBATION. Resulted Labs and/or images reviewed: Labs reviewed by me, Image(s) reviewed by me Assessment/Plan Assessment/Plan Sepsis secondary to cellulitis left upper extremity Cellulitis left upper extremity secondary to IV drug abuse: Zosyn vancomycin blood cultures negative IV methamphetamine abuse: Counseling Polysubstance abuse Time smoker counseling nicotine patch Hepatitis panel and HIV pending History of left lower extremity DVT secondary to IV drug abuse Time spent 55 minutes JF Bryant at bed side Plan discussed with: Patient Date of Service: Jul 26, 2025 Billing Provider: OKSANA OROZCO MD Common Visit Codes: [id number] INP/OBS CARE(HIGH) OKSANA OROZCO MD Jul 26, 2025 11:41
[2025-07-27 01:00] VITALS: BP 111/56; PULSE 82; RESP 19; TEMP 97.9; O2SAT 98
[2025-07-27 08:00] VITALS: PULSE 74
[2025-07-27 09:00] VITALS: BP 109/55; PULSE 70; RESP 18; TEMP 97.8; O2SAT 96
[2025-07-27] MEDS: VANCOMYCIN 1.25GM/250ML 250 ML IV SCH (11:00)
[2025-07-27] MEDS ORDERED: LEVO500T91 PO (11:02)
[2025-07-27] MEDS ORDERED: HYDR-4902 PO (11:02)
[2025-07-27] MEDS ORDERED: CEPH250C PO (11:02)
--- NOTE | 2025-07-27 11:11 | DVHDS2 ---
Discharge Summary Date of Admission Jul 22, 2025 at 20:46 Date of Discharge: Jul 27, 2025 Admitting Diagnosis Infection of the left upper extremity Wounds: Cellulitis left upper extremity Labs/Diagnostic Data: Laboratory Results Test 07/26/25 23:05 07/24/25 06:30 07/24/25 06:01 07/23/25 07:59 Creatinine 0.70 mg/dL (0.550-1.02) Glomerular Filtration Rate Calc 113 mL/min (>90) Vancomycin Level Trough 17.1 ug/mL (5-10) Urine Color Colorless (Yellow) Urine Clarity Clear (Clear) Urine pH 7.0 (5.0-9.0) Urine Specific [place] 1.007 (1.001-1.035) Urine Protein Negative (Negative) Urine Ketones Negative (Negative) Urine Blood Negative /uL (Negative) Urine Nitrite Negative (Negative) Urine Bilirubin Negative (Negative) Urine Urobilinogen Normal mg/dL (Negative) Urine Leukocyte Esterase Negative /uL (Negative) Urine RBC 1 /hpf (0 - 4) Urine Microscopic WBC 2 /HPF (0-5) Urine Squamous Epithelial Cells Few /hpf (<5) Urine Bacteria None seen /hpf (None Seen) Urine Glucose Normal mg/dL (Normal) Urine Opiates Screen Neg (NEGATIVE) Urine Fentanyl Screen Neg (NEGATIVE) Urine Barbiturates Screen Neg (NEGATIVE) Urine Phencyclidine Screen Neg (NEGATIVE) Urine Amphetamines Screen Pos (NEGATIVE) Urine Benzodiazepines Screen Neg (NEGATIVE) Urine Cocaine Screen Neg (NEGATIVE) Urine Cannabinoids Screen Neg (NEGATIVE) White Blood Count 10.1 10^3/uL (4.4-10.8) Red Blood Count 4.10 10^6/uL (4.0-5.20) Hemoglobin 12.6 g/dL (12.2-16.2) Hematocrit 36.5 % (36.0-46.0) Mean Corpuscular Volume 88.9 fL (80.0-100.0) Mean Corpuscular Hemoglobin 30.8 pg (28.0-32.0) Mean Corpuscular Hemoglobin Concent 34.7 g/dL (32.0-36.0) Red Cell Distribution Width 12.6 % (11.8-14.3) Platelet Count 280 10^3/uL (140-450) Mean Platelet Volume 8.3 fL (6.9-10.8) Neutrophils (%) (Auto) 73.1 % (37.0-80.0) Lymphocytes (%) (Auto) 16.3 % (10.0-50.0) Monocytes (%) (Auto) 7.8 % (0.0-12.0) Eosinophils (%) (Auto) 2.3 % (0.0-7.0) Basophils (%) (Auto) 0.5 % (0.0-2.0) Neutrophils # (Auto) 7.4 10 ^3/uL (1.6-8.6) Lymphocytes # (Auto) 1.7 10 ^3/uL (0.4-5.4) Monocytes # (Auto) 0.8 10 ^3/uL (0-1.3) Eosinophils # (Auto) 0.2 10 ^3/uL (0-0.8) Basophils # (Auto) 0.1 10 ^3/uL (0-0.2) Nucleated Red Blood Cells 0.0 % Random Vancomycin Level < 3.0 ug/mL (5-10) Prothrombin Time 10.9 sec (9.3-11.8) Prothrombin Time INR 1.03 (0.9-1.15) Activated Partial Thromboplast Time 27.4 SEC (24.5-34.5) Sodium Level 138 mmol/L (136-145) Potassium Level 4.0 mmol/L (3.5-5.1) Chloride Level 104 mmol/L (98-107) Carbon Dioxide Level 25 mmol/L (20-31) Anion Gap 9 (5-15) Blood Urea Nitrogen 9 mg/dL (9-23) BUN/Creatinine Ratio 13.4 (10.0-20.0) Serum Glucose 101 mg/dL (74-106) Calcium Level 9.2 mg/dL (8.7-10.4) Hepatitis A Antibody Total Negative (Negative) Hepatitis B Surface Antigen Negative (Negative) Hepatitis B Surface Antibody Positive (Negative) Hepatitis B Core Total Antibody Negative (Negative) Hepatitis C Antibody Negative (Negative) HIV (1&2) Antibody Negative (Negative) Test 07/22/25 15:32 Hemoglobin A1c 5.2 % A1C (<5.7) Lactic Acid Level 1.9 mmol/L (0.4-2.0) Phosphorus Level 1.6 mg/dL (2.4-5.1) Magnesium Level 1.9 mg/dL (1.6-2.6) Total Bilirubin 0.9 mg/dL (0.2-1.0) Aspartate Amino Transferase (AST) 25 U/L (13-40) Alanine Aminotransferase (ALT) 20 U/L (7-40) Alkaline Phosphatase 131 U/L (46-116) C-Reactive Protein High Sensitivity 0.89 mg/dL (<1.0) Total Protein 7.6 g/dL (5.7-8.2) Albumin 4.5 g/dL (3.2-4.8) Vitamin B12 Level 442 pg/mL (211-911) Vitamin D 25-Hydroxy 28.5 ng/mL (30.0-100) Thyroid Stimulating Hormone (TSH) 1.62 uIU/mL (0.55-4.78) Beta HCG, Quantitative 0.4 mIU/mL (1.5-4.2) Plasma/Serum Blood Alcohol < 3.0 mg/dL (<10) Other Laboratory Tests 07/26/25 23:05 07/24/25 06:01 07/23/25 07:59 Brief Hx & Hospital Course: 39-year-old female with a polysubstance abuse history of current IV meth abuse came in for sepsis secondary to cellulitis of the left upper extremity secondary to IV drug abuse treated with the Zosyn vancomycin blood cultures negative patient was counseled about quitting IV drugs. History of past hep B infection. History of left lower extremity DVT in the past secondary to drug abuse. Being discharged home Levaquin Keflex and [place]. At the time of discharge patient is afebrile with a minimal pain and stable vital signs Consults/Reason for consult None Operations or Procedures None Condition at Discharge: Fair Final Diagnosis/Problems List Sepsis secondary to cellulitis left upper extremity Cellulitis left upper extremity secondary to IV drug abuse: Zosyn vancomycin blood cultures negative IV methamphetamine abuse: Counseling Polysubstance abuse Time smoker counseling nicotine patch Hepatitis panel and HIV pending History of left lower extremity DVT secondary to IV drug abuse Discharge Disposition: Home Discharge Instruct/Medications Diet: Regular Activity: Light activity Follow Up/Referral: Stop Doing IV drugs Follow up with your primary Dr Dr. Ric Harrington in one week Medications: Keflex Levaquin [place] Transmitted to [facility] Scheduled Cephalexin (Keflex Capsule), 1 CAP PO QID Levofloxacin Hemihydrate (Levaquin 500 Mg), 1 TAB PO DAILY Scheduled PRN Hydrocodone-Acetaminophen (Hydrocodone Bitartrate/AC 5-325 mg), 1 TAB PO QID PRN 39 (Time taken for discharge summary 39 minutes) Discharge Statement: "Patient was advised to return to the ER or call 911 if any headaches, dizziness, shortness of breath, chest pain, abdominal pain, bleeding, fevers, or worsening of medical condition. Patient was counseled about treatment plan, medications, possible side effects, patientverbalized understanding. All questions were answered to the best of my ability. This discharge took greater then 30 minutes in planning, reviewing documentation, counseling the patient, and discussing with other team members." ASSESSMENT ASSESSMENT Hospital Course Improved Assessment Sepsis secondary to cellulitis left upper extremity Cellulitis left upper extremity secondary to IV drug abuse: Zosyn vancomycin blood cultures negative IV methamphetamine abuse: Counseling Polysubstance abuse Time smoker counseling nicotine patch Hepatitis panel and HIV pending History of left lower extremity DVT secondary to IV drug abuse Date of Service: Jul 27, 2025 Billing Provider: OKSANA OROZCO MD Common Visit Codes: [id number] DISCH DAY >30min OKSANA OROZCO MD Jul 27, 2025 11:11
[2025-07-27 11:54] VITALS: BP 112/70; PULSE 91; RESP 18; TEMP 98.6; O2SAT 97
[2025-07-27 12:36] VITALS: BP 112/70; PULSE 91; RESP 18; TEMP 97.6; O2SAT 97
== END 2025-07-27 14:09 | disposition home or self-care (01) | DRG 720 ==
LOC: ER 14:30 → OVERFLOW 20:46 → TELE-EAST 07-23 23:01
PROVIDERS: ADMIT Family Medicine; ATTEND Family Medicine
DX: A41.9 Sepsis, unspecified organism (principal); F12.10 Cannabis abuse, uncomplicated; F15.10 Other stimulant abuse, uncomplicated; L03.114 Cellulitis of left upper limb; Z86.718 Personal history of other venous thrombosis and embolism; Z86.19 Personal history of other infectious and parasitic diseases; Z90.49 Acquired absence of other specified parts of digestive tract; Z72.0 Tobacco use; Z71.6 Tobacco abuse counseling
CPT/HCPCS: 36415; 71046; 73201; 80048; 80053; 80202; 80307; 80320; 81001; 82306; 82565; 82607; 83036; 83605; 83735; 84100; 84443; 84702; 85025; 85610; 85730; 86141; 86703; 86704; 86706; 86708; 86803; 87040; 87081; 87340; 93971; 96365; 96367; G0378; J2543